=== PATIENT | female | born 1995 | race Caucasian/White ===

== ENCOUNTER 2020-06-21 12:20 | Emergency (ER) | payer OTHER, SELFPAY ==
--- NOTE | 2020-06-23 16:41 | ED.FEMALEGU ---
HPI - Female Genitourinary General Stated complaint: uti Time Seen by Provider: 06/21/20 18:00 Source: patient Mode of arrival: ambulatory Limitations: no limitations History of Present Illness HPI Narrative: Vickie Mehta is a 24 yo female with no PMH who comes to express care with back pain and , feels like her bladder spasming at the end of urination. Was given 3 days of Macrobid earlier in the week and initially felt better but all the symptoms have returned her last UTI was 1 year ago Related Data Home Medications Medication Instructions Recorded Confirmed cetirizine 10 mg tablet 10 mg PO DAILY 11/15/19 Allergies Allergy/AdvReac Type Severity Reaction Status Date / Time No Known Allergies Allergy Verified 05/27/20 09:38 Review of Systems Review of Systems: Narrative: CONSTITUTIONAL: Denies fever, chills, sweats. EYES: Denies visual changes, redness, discharge. ENT: Denies rhinorrhea, congestion, sore throat, otalgia. CARDIOVASCULAR: Denies chest pain, palpitations, edema. RESPIRATORY: Denies dyspnea, wheezing, cough GASTROINTESTINAL: Denies abdominal pain, nausea, vomiting, diarrhea. GENITOURINARY: Has dysuria, has hematuria, no abnormal discharge SKIN: Denies rash or itching. NEUROLOGIC: Denies numbness, or focal weakness. PSYCHIATRIC: Denies anxiety or depression. PMFSH Past Medical History Medical History Anxiety and depression OCD (obsessive compulsive disorder) Surgical History Surgical History Hx of total cystectomy 2014 right breast S/P ACL surgery right 2017 Family History Family History Grandparent Ovarian cancer Social History Social History Smoking status: Never smoker Alcohol intake: current Gender identity (if verbalized by the patient): Female Exam Narrative: Exam Narrative: GENERAL: This is a well-nourished, well-developed patient, in mild distress. HEAD: normocephalic, atraumatic. EYES: Sclera clear/white. Vision is grossly intact. EARS: External ears normal, . Hearing grossly intact. NOSE: External nose normal without nasal discharge, THROAT: Mucous membranes moist, NECK: Neck supple, CARDIOVASCULAR: Regular rate and rhythm without murmurs, gallops, or rubs. RESPIRATORY: Clear to auscultation. Breath sounds equal bilaterally. No wheezes, rales, or rhonchi. GASTROINTESTINAL: Abdomen soft, tender, mild right-sided lower back tenderness, tenderness SKIN: warm, intact with no suspicious lesions or rash, good texture and turgor. NEURO: awake, alert, and oriented to person, place and time. There were no obvious focal neurologic abnormalities. Steady gait EXTREMITIES: Normal range of motion. BACK: Nontender without deformity Course Course Emergency Course: Came to express care after failure of 3-day treatment of Macrobid for UTI Urine Dipstick showed 2+ protein 2+ leukocytes-sent for culture Continues to have symptoms of UTI change antibiotic to Keflex full course and Pyridium given Diflucan to take at the end of the antibiotics for prevention of fungal infection MDM - Female Genitourinary Differential Diagnosis Differential diagnosis: Likely urinary tract infection, bacterial vaginosis, cystitis and other Critical Care Time Critical Care Time Critical Care Time: No Discharge Plan Discharge Clinical Impression: UTI (urinary tract infection) Qualifiers: Urinary tract infection type: acute cystitis Hematuria presence: with hematuria Qualified Code(s): N30.01 - Acute cystitis with hematuria Patient Disposition: Home, Self-Care Condition: Stable Instructions: Dysuria (ED) Additional Instructions: Given Keflex, Pyridium, Diflucan Prescriptions: No Action cetirizine [Zyrtec] 10 mg tablet 10 mg PO DAILY RF: 0 sertraline 50
== END 2020-06-21 17:52 | disposition home or self-care (01) ==
PROVIDERS: Emergency Provider Nurse Practitioner
DX: N30.01 Acute cystitis with hematuria (principal)
CPT/HCPCS: 99213; G0463

== ENCOUNTER 2020-12-30 09:47 | Day surgery (SDC) | payer OTHER, SELFPAY ==
[2020-12-30] VITALS (12 sets, daily range): BP systolic 100–123; BP diastolic 46–78; PULSE 56–108; RESP 9–20; TEMP 36.4–37.4; O2SAT 95–100
--- NOTE | ~2020-12-30 | CT_ITS ---
EXAMINATION: CT abdomen pelvis w con INDICATION: Right lower quadrant TECHNIQUE: Computed tomographic images of the abdomen and pelvis were obtained after the administrati on of 100 cc of Omnipaque 350 intravenous contrast. The dose-length product (DLP) was 281.55 mGy-cm. Automated exposure control and iterative reconstruction technique were employed. COMPARISON: None available FINDINGS: The lung bases are clear. The heart size is normal. The liver, spleen, pancreas, gallbladde r, and adrenal glands are normal. The left kidney is unremarkable. 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 No pathologically enlarged abdominal or pelvic lymph nodes are identified. The dilated a ppendix measures 9 mm fat. No abscess or evidence of perforation identified. An IUD is present in exp ected location. There is a small volume of ascites in the pelvis. The visualized osseous structures a re unremarkable. IMPRESSION: 1. Acute appendicitis. These findings were discussed with Dr. Luís Freeman MD in the Emergency Department at 1206 hours on 12/30/2020. Reviewed, dictated and finalized at location B.
[2020-12-30 10:53] LABS: Basophils Percent Auto 0.4 % (0.2-1.2); Eosinophils Absolute Auto 0.1 K/mm3 (0-0.3); Eosinophils Percent Auto 1.1 % (0-4.4); Hematocrit 38.7 % (37.0-47.0); Hemoglobin 12.8 g/dL (12.0-15.0); Immature Granulocyte Absolute 0.04 K/mm3 (0.00-0.031); Immature Granulocyte Percent A 0.4 % (0-0.5); Lymphocytes Absolute Auto 1.28 K/mm3 (0.9-3.2); Lymphocytes Percent Auto 11.2 % (18.3-44.2); Mean Corpuscular HGB Conc 33.1 g/dl (32-36); Mean Corpuscular Hemoglobin 30.5 pg (26-34); Mean Corpuscular Volume 92.4 fl (80-100); Mean Platelet Volume 10.4 fl (7.4-10.4); Monocytes Absolute Auto 0.5 K/mm3 (0.1-0.6); Monocytes Percent Auto 4.7 % (2.6-8.5); Neutrophils Absolute Auto 9.4 K/mm3 (1.3-6.7); Neutrophils Percent Auto 82.2 % (45.5-73.1); Platelet Count Result 251 k/mm3 (150-375); Red Blood Count 4.19 M/mm3 (4.2-5.4); White Blood Count 11.4 K/mm3 (4.5-10.0)
[2020-12-30 11:00] LABS: Alanine Aminotransferase 14 U/L (4-35); Albumin Level 4.8 g/dL (3.5-5.1); Alkaline Phosphatase 54 U/L (38-126); Anion Gap 8 mmol/L (8-16); Aspartate Amino Transferase 26 U/L (14-36); Bilirubin,Total 1.2 mg/dL (0.2-1.3); Blood Urea Nitrogen 9 mg/dL (7-17); Calcium 9.7 mg/dL (8.4-10.2); Carbon Dioxide 27 mmol/L (22-30); Chloride 104 mmol/L (98-107); Estimated CRCL calculation 75 ml/min; Estimated Glomerular Filt Rate > 60; Glucose 128 mg/dL (65-105); Lipase 78 U/L (23-300); Potassium 3.7 mmol/L (3.4-5.0); Sodium 139 mmol/L (137-145)
[2020-12-30 11:02] LABS: Add Urine Microscopic? YES; Appearance Urine Clear (Clear); Bacteria Urine Trace /hpf; Bilirubin Urine Negative (Negative); Blood Urine 2+ (Negative); Color Urine Colorless (Yellow); Glucose Urine UA Negative (Negative); Ketones Urine Negative (Negative); Leukocyte Esterase Ur Negative LEU/UL (Negative); Nitrate Urine Negative (Negative); Protein Urine Negative (Negative); RBC Urine 0-2 /hpf (0-2); Squamous Epithelial Cell Urine Few /hpf (Few); Urobilinogen Urine Negative mg/dL (<2.0); WBC Urine 0-3 /hpf
[2020-12-30 11:03] LABS: Specific Grav Ur 1.004 (1.001-1.035)
[2020-12-30] MEDS: MORPHINE SULFATE (*CRX) 4 MG/ML INJ IV PUSH (11:39)
[2020-12-30] MEDS: SODIUM CHLORIDE 0.9% IV 1,000 ML 999 ML IV CONT (12:42)
--- NOTE | 2020-12-30 12:51 | ED.GENADULT ---
HPI - General Adult General Chief complaint: Abdominal Pain Stated complaint: abd pain, nausea Time Seen by Provider: 12/30/20 11:13 History of Present Illness HPI narrative: Patient is a 25-year-old female who presents to the ER with abdominal pain. Began in her epigastrium and burning in nature. Also developed pain in her right lower quadrant. Worsening over the last day since taking a diet pill. Denies fevers or chills or sweats. Has not had similar pain in the past. Pain is also worse with bending and moving. Related Data Home Medications Medication Instructions Recorded Confirmed cetirizine 10 mg tablet 10 mg PO DAILY 11/15/19 Allergies Allergy/AdvReac Type Severity Reaction Status Date / Time No Known Allergies Allergy Verified 05/27/20 09:38 Review of Systems Review of Systems: All systems reviewed & are unremarkable except as noted in HPI and below Constitutional: Constitutional: Denies chills, Denies fever(s) and Denies weakness ENT: Denies nasal congestion and Denies sore throat Gastrointestinal: Gastrointestinal: Reports abdominal pain, Denies diarrhea, Reports nausea and Denies vomiting Genitourinary: Genitourinary: Denies nocturia, Denies dysuria and Denies flank pain PMFSH Past Medical History Medical History Anxiety and depression OCD (obsessive compulsive disorder) Surgical History Surgical History Hx of total cystectomy 2014 right breast S/P ACL surgery right 2017 Family History Family History Grandparent Ovarian cancer Social History Social History Smoking status: Never smoker Alcohol intake: current Gender identity (if verbalized by the patient): Female Exam Narrative: Exam Narrative: GENERAL: Well-appearing, well-nourished, and in no acute distress. HEAD: Normocephalic, atraumatic. ENT: Mucous membranes moist. CHEST: Clear to auscultation. No respiratory distress. HEART: Regular rate and rhythm. Normal peripheral pulses. ABDOMEN: Soft, TTP RLQ with guarding, nondistended. EXTREMITIES: Normal range of motion. No edema. SKIN: Warm, dry, no rash. NEURO: Alert and oriented x3. PSYCH: Normal mood and affect. Course Course Emergency Course: Patient informed results. Surgery at bedside. Patient receiving Zosyn and IV fluid. She is n.p.o. Vital Signs Vital signs: Vital Signs Temperature 98.0 F 12/30/20 10:18 Pulse Rate 90 12/30/20 10:18 Respiratory Rate 18 12/30/20 10:18 Blood Pressure 123/74 12/30/20 10:18 Pulse Oximetry 100 12/30/20 10:18 Temperature 98.0 F 12/30/20 11:21 Pulse Rate 63 12/30/20 12:42 Respiratory Rate 20 12/30/20 12:42 Blood Pressure 104/57 L 12/30/20 12:42 Pulse Oximetry 99 12/30/20 12:42 Medical Decision Making Vital Signs Vital Signs: Vital Signs Temperature 98.0 F 12/30/20 10:18 Pulse Rate 90 12/30/20 10:18 Respiratory Rate 18 12/30/20 10:18 Blood Pressure 123/74 12/30/20 10:18 Pulse Oximetry 100 12/30/20 10:18 Temperature 98.0 F 12/30/20 11:21 Pulse Rate 63 12/30/20 12:42 Respiratory Rate 20 12/30/20 12:42 Blood Pressure 104/57 L 12/30/20 12:42 Pulse Oximetry 99 12/30/20 12:42 Lab Data Result diagrams: 12/30/20 10:37 12/30/20 10:37 Labs: Lab Results 12/30/20 12/30/20 12/30/20 Range/Units 10:37 10:37 10:37 WBC 11.4 H (4.5-10.0) K/mm3 RBC 4.19 L (4.2-5.4) M/mm3 Hgb 12.8 (12.0-15.0) g/dL Hct 38.7 (37.0-47.0) % MCV 92.4 (80-100) fl MCH 30.5 (26-34) pg MCHC 33.1 (32-36) g/dl RDW 12.0 (11.5-14.5) % Plt Count 251 (150-375) k/mm3 MPV 10.4 (7.4-10.4) fl Immature Gran % (Auto) 0.4 (0-0.5) % Neut % (Auto) 82.2 H (45.5-73.1) % Lymph % (Auto) 1
--- NOTE | 2020-12-30 13:47 | PM.IMHP ---
H&P: HPI History of Present Illness Date/Time: 12/30/20 13:47 Pt is a 25 y/o F presenting to ED c/o RLQ abd pain over last few days. Pt reports pain started on Monday but more diffuse and less severe. Pt reports progressive localization to RLQ and now pain is much more severe, sharp. Pt reports some N/V, decreased appetite. Pt denies previous episodes, denies f/c. Chief Complaint: acute appendicitis Review of Systems Constitutional: Constitutional: Reports anorexia, Denies body ache(s), Denies chills, Reports fatigue, Denies fever(s), Denies headache(s), Denies malaise, Denies night sweats, Reports poor appetite, Denies weakness, Denies weight gain and Denies weight loss Eyes: Eyes: Reports no additional eye complaints ENT: Reports system reviewed and no additional complaints, except as documented Cardiovascular: Cardiovascular: Reports no additional cardiovascular complaints Respiratory: Respiratory: Reports no additional respiratory complaints Gastrointestinal: Gastrointestinal: Reports as per HPI, Reports abdominal pain, Denies belching, Denies bloating, Denies hematochezia, Denies change in bowel habits, Denies change in stool character, Denies constipation, Denies GI cramping, Denies early satiety, Denies heartburn, Denies diarrhea, Denies loose stools, Reports nausea and Reports vomiting Genitourinary: Genitourinary: Reports no additional female genitourinary complaints Musculoskeletal: Musculoskeletal: Reports no additional musculoskeletal complaints Integumentary/Breasts: Skin/Breast: Reports system reviewed and no additional complaints, except as docu Neurologic: Reports system reviewed and no additional complaints, except as documented Psychiatric: Psychiatric: Reports no additional psychiatric complaints Endocrine: Endocrine: Reports no additional endocrine complaints Hematologic/Lymphatic: Hematologic/Lymphatic: Reports no additional hematologic/lymphatic complaints Allergic/Immunologic: Allergic/Immunologic: Reports no additional allergic/immunologic complaints PMFSH Past Medical History Medical History Anxiety and depression OCD (obsessive compulsive disorder) Surgical History Surgical History Hx of total cystectomy 2014 right breast S/P ACL surgery right 2017 Family History Family History Grandparent Ovarian cancer Social History Social History Smoking status: Never smoker Alcohol intake: current Gender identity (if verbalized by the patient): Female Meds Home Medications and Allergies Home Medications Medication Instructions Recorded Confirmed Type cetirizine 10 mg tablet 10 mg PO DAILY 11/15/19 History sertraline 50 mg tablet 50 mg PO DAILY #90 tablet 01/28/20 Rx Allergies Allergy/AdvReac Type Severity Reaction Status Date / Time No Known Allergies Allergy Verified 05/27/20 09:38 Vital Signs Vital Signs - 24 hr 12/30/20 10:18 12/30/20 11:21 12/30/20 12:42 Temperature 36.7 C 36.7 C Pulse Rate 90 78 63 Respiratory Rate 18 18 20 Blood Pressure 123/74 123/74 104/57 L Pulse Oximetry 100 100 99 Exam Const: General: cooperative, healthy appearing, comfortable and acute distress mild Nutritional Appearance: average body habitus Orientation/consciousness: patient oriented x3 Limitations: no limitations HENMT: Head: normal to inspection, normocephalic and atraumatic Ears: hearing grossly normal bilaterally General nose exam: Normal external nose present Face and sinus: normal facial exam Mouth: Yes Normal oral and palatal mucosa present and Yes moist mucous membranes Eyes: General: appearance normal, both eyes and all related structures Pupils: Equal, round and reactive pupils present EOM: EOMs intact bilaterally Neck: Neck: normal vi
--- NOTE | 2020-12-30 13:52 | WPDHPUPDATE1 ---
History and Physical Update Update Date/Time: 12/30/20 13:52 History and Physical has been reviewed, including an updated exam of the patient. There are NO changes in the patient's condition. Risks, benefits, and alternatives have been discussed and questions answered. Patient agrees to proceed with procedure.
--- NOTE | 2020-12-30 14:41 | WPDANESEPPF ---
Anes - Initial Pre Proc Eval Procedure: Operation Date: 12/30/20 16:00 Proposed Procedures p Laparoscopic Appendectomy - Chrystal Buck MD Date/Time: 12/30/20 14:41 Surgeon: Chrystal Buck MD Pre Op Diagnosis: abd pain, nausea Patient Data Age: 25 Gender: F Height: 1.57 m Weight: 65.4 kg Last Vital Signs Temp 37.4 C 12/30/20 14:29 Pulse 56 L 12/30/20 14:29 Resp 16 12/30/20 14:29 BP 106/61 12/30/20 14:29 Pulse Ox 98 12/30/20 14:29 Allergies Allergy/AdvReac Type Severity Reaction Status Date / Time No Known Allergies Allergy Verified 12/30/20 14:41 Home Medications Medication Instructions Recorded Confirmed Type cetirizine 10 mg tablet 10 mg PO DAILY 11/15/19 History [id number] K 1 tab-cap PO DAILY 12/30/20 12/30/20 History [Multi For Her] Laboratory Tests 12/30/20 12/30/20 12/30/20 10:37 10:37 10:37 WBC 11.4 K/mm3 H K/mm3 (4.5-10.0) RBC 4.19 M/mm3 L M/mm3 (4.2-5.4) Hgb 12.8 g/dL g/dL (12.0-15.0) Hct 38.7 % % (37.0-47.0) MCV 92.4 fl fl (80-100) MCH 30.5 pg pg (26-34) MCHC 33.1 g/dl g/dl (32-36) RDW 12.0 % % (11.5-14.5) Plt Count 251 k/mm3 k/mm3 (150-375) MPV 10.4 fl fl (7.4-10.4) Immature Gran % (Auto) 0.4 % % (0-0.5) Neut % (Auto) 82.2 % H % (45.5-73.1) Lymph % (Auto) 11.2 % L % (18.3-44.2) [place] % (Auto) 4.7 % % (2.6-8.5) Eos % (Auto) 1.1 % % (0-4.4) Baso % (Auto) 0.4 % % (0.2-1.2) Lymph # (Auto) 1.28 K/mm3 K/mm3 (0.9-3.2) [place] # (Auto) 0.5 K/mm3 K/mm3 (0.1-0.6) Eos # (Auto) 0.1 K/mm3 K/mm3 (0-0.3) Baso # (Auto) 0.0 K/mm3 K/mm3 (0.0-0.1) Abs Immat Gran (auto) 0.04 K/mm3 H K/mm3 (0.00-0.031) Absolute Neuts (auto) 9.4 K/mm3 H K/mm3 (1.3-6.7) Absolute Nucleated RBC 0.0 K/mm3 K/mm3 (0.0-0.012) Nucleated RBC % 0.0 % % (0.0-0.2) Sodium 139 mmol/L mmol/L (137-145) Potassium 3.7 mmol/L mmol/L (3.4-5.0) Chloride 104 mmol/L mmol/L (98-107) Carbon Dioxide 27 mmol/L mmol/L (22-30) Anion Gap 8 mmol/L mmol/L (8-16) BUN 9 mg/dL mg/dL (7-17) Creatinine 0.90 mg/dL mg/dL (0.7-1.0) Estim Creat Clear Calc 75 ml/min ml/min Estimated GFR > 60 (59 - ) Glucose 128 mg/dL H mg/dL (65-105) Calcium 9.7 mg/dL mg/dL (8.4-10.2) Total Bilirubin 1.2 mg/dL mg/dL (0.2-1.3) AST 26 U/L U/L (14-36) ALT 14 U/L U/L (4-35) Alkaline Phosphatase 54 U/L U/L (38-126) Total Protein 8.0 g/dL g/dL (6.3-8.2) Albumin 4.8 g/dL g/dL (3.5-5.1) Lipase 78 U/L U/L (23-300) Urine Color Colorless (Yellow) Urine Appearance Clear (Clear) Urine pH 7.0 (5.0-9.0) Ur Specific Clarissa 1.004 (1.001-1.035) Urine Protein Negative mg/dL mg/dL (Negative) Urine Glucose (UA) Negative mg/dL mg/dL (Negative) Urine Ketones Negative mg/dL mg/dL (Negative) Ur Blood (Man) 2+ H (Negative) Urine Nitrate Negative (Negative) Urine Bilirubin Negative (Negative) Urine Urobilinogen Negative mg/dL mg/dL (<2.0) Leukocyte Esterase Rfl Negative WILFRED/UL WILFRED/UL (Negative) Urine RBC 0-2 /hpf /hpf (0-2) Urine WBC 0-3 /hpf /hpf Ur Squamous Epith Cells Few /hpf /hpf (Few) Urine Bacteria Trace /hpf /hpf Patient hx anesthesia problems: none Family hx anesthesia problems: none PMFSH Past Medical History Medical History Anxiety and depression OCD (obsessive compulsive disorder) Surgical History Araceli
[2020-12-30] MEDS: BUPIVACAINE/EPINEPHRINE 0.5% 10 ML VIAL 30 ML INFILTRATE (15:49)
--- NOTE | 2020-12-30 15:50 | P.OP_ITS ---
Procedure Note - Detailed Date of Procedure 12/30/20 Pre-op Diagnosis acute appendicitis Post-op Diagnosis same Procedure Performed laparoscopic appendectomy Surgeon Chrystal Buck MD Anesthesia general Findings acute appendicitis no evidence of perforation Description of Procedure The patient was taken to the operating room and placed in the supine position. After adequate induction of general anesthesia, the patient was prepped and draped in the normal sterile fashion. A time-out was then done to verify the patient's identity, as well as the procedure being performed. I began by making a 5 mm incision in the infraumbilical region, through this a Veress needle was placed in the peritoneal cavity. CO2 gas was then insufflated and after adequate pneumoperitoneum was achieved the Veress needle was removed. Then placed a 5 mm Optiview trocar under direct visualization into the peritoneal cavity. I then insufflated through this trocar site and the endoscope was placed into the trocar. Under direct visualization, placed 2 further 5 mm suprapubic port as well as an additional 12 mm port in the left lower abdomen. At this point identified the cecum, I retracted the cecum both medially and superiorly allowing me to expose the appendix. The appendix was noted to be dilated and inflamed especially towards the tip. The appendix was noted to be very adherent to the right lateral sidewall as well as the ileum. I was able to bluntly dissect the appendix from these adhesions. I then was able to locate the base of the appendix with the cecum. I created a window with the [place] dissector between the appendix itself and the mesoappendix. I then transected the mesoappendix with a white vascular staple load. The Endo-JUAN ANTONIO was then reloaded with a blue staple load and I transected the base of the appendix. Once the specimen was completely detached, an endo-pouch was placed into the 12 mm port site and the specimen was removed through the endo-pouch. The appendiceal specimen will be sent to pathology for further review. I then co piously irrigated the right lower quadrant. Hemostasis was noted at both staple lines no other pathology was seen in this area. I then moved the camera to the suprapubic port to check our its port of entry. No iatrogenic injury or other pathology was noted in the upper abdomen. I then closed the 12 mm port site with a Etienne code and 0 Vicryl suture under direct visualization. At this point, the abdomen was desufflated and all ports were removed. All port sites were closed with 4 Monocryl subcuticular suture. Dermabond was placed on all wounds. The patient tolerated the procedure well and was extubated in the operating room postop. He will be sent to the recovery room in stable condition. Estimated Blood Loss 10 Drains No Packing No Pathology yes Complications No immediate complications Condition stable Disposition PACU
[2020-12-30] MEDS: LACTATED RINGERS 1,000 ML 30 ML IV CONT ×2 (16:10)
[2020-12-30] MEDS: fentaNYL CITRATE INJ (*CRX) 100 MCG/2 ML VIAL 25 MCG IV PUSH ×8 (16:22→16:49)
== END 2020-12-30 17:47 | disposition home or self-care (01) ==
LOC: ANHED 13:12 → ANHSURGERY 13:49
PROVIDERS: Emergency Provider Emergency Medicine; PCP Internal Medicine; Visit Provider Surgery
PROC: 0DTJ4ZZ Resection of Appendix, Percutaneous Endoscopic Approach (ICD-10-PCS; CPT 44970; principal; 2020-12-30 16:00)
DX: K35.30 Acute appendicitis with localized peritonitis, without perforation or gangrene (principal)
CPT/HCPCS: 44970; 36415; 74177; 80053; 81001; 81025; 83690; 85025; 88304; 96365; 96375; 99285; J2250; J2270; J2543; J3010; J7030; J7120; Q9967

== ENCOUNTER → 2023-07-04 12:46 | Outpatient (CLI) | payer OTHER, SELFPAY ==
--- NOTE | ~2023-07-04 | US_ITS ---
Pelvic ultrasound. Clinical History: Pelvic pain, bloating Technique: Realtime transabdominal scanning of the pelvis was performed. Color flow Doppler and Doppl er spectral analysis were performed. Findings: The uterus is anteverted. The endometrial stripe has a thickness of [address] No focal mass is identified. The right ovary measures 5.1 x 2.9 x 5.3 cm. Right ovarian cyst measures 4.1 x 1.9 x 3.3 cm. The left ovary measures 3.7 x 2.2 x 2.2 cm. No significant left ovarian or adnexal mass is seen. There is no evidence of free fluid in the cul de sac. Impression: IUD in satisfactory position. 4.1 cm simple right ovarian cyst. Reviewed, dictated and finalized at [facility]. [employer] Impression: IUD in satisfactory position. 4.1 cm simple right ovarian cyst.
== END ==
PROVIDERS: PCP Nurse Practitioner; Visit Provider Nurse Practitioner
DX: R10.2 Pelvic and perineal pain (principal); Z97.5 Presence of (intrauterine) contraceptive device; N83.201 Unspecified ovarian cyst, right side
CPT/HCPCS: 76856

== ENCOUNTER → 2023-08-21 14:50 | Outpatient (CLI) | payer OTHER, SELFPAY ==
--- NOTE | ~2023-08-21 | US_ITS ---
Pelvic ultrasound. Clinical History: Right ovarian cyst COMPARISON: 07/04/2023 Technique: Realtime transabdominal scanning of the pelvis was performed. Color flow Doppler and Doppl er spectral analysis were performed. Findings: The uterus is anteverted. The endometrial stripe has a thickness of [address] No focal mass is identified. The right ovary measures 1.3 x 2.9 x 1.6 cm. No significant right ovarian or adnexal mass is seen. The left ovary measures 3.1 x 1.9 x 3.1 cm. No significant left ovarian or adnexal mass is seen. There is no evidence of free fluid in the cul de sac. Impression: Previously noted right ovarian cyst is resolved. IUD in place. Reviewed, dictated and finalized at [facility]. [employer] Impression: Previously noted right ovarian cyst is resolved. IUD in place.
== END ==
PROVIDERS: PCP Obstetrics & Gynecology Gynecology; Visit Provider Obstetrics & Gynecology Gynecology
DX: N83.201 Unspecified ovarian cyst, right side (principal); Z97.5 Presence of (intrauterine) contraceptive device
CPT/HCPCS: 76856

== ENCOUNTER 2023-12-01 21:56 | Emergency (ER) | payer OTHER, SELFPAY ==
[2023-12-01 22:05] VITALS: BP 128/87; PULSE 78; RESP 16; TEMP 36.9; O2SAT 100
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
[2023-12-01] MEDS: HYDROcodone/acetaminophen (*CRX) 5-325 MG TABLET 1 TAB PO (22:42)
[2023-12-01] MEDS: TETANUS,DIPHTHERIA,AC PERTUSSIS ADULT (0.5 ML) BOOSTRIX IM (22:43)
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
[2023-12-02] MEDS: ONDANSETRON HCL ODT 4 MG TABLET PO (00:31)
[2023-12-02] MEDS: BACITRACIN OINTMENT 15 GM TUBE 1 APPLIC (00:31)
--- NOTE | 2023-12-02 00:47 | PC.NURSE ---
wound cleansed ns and bacitracin placed on top. telfa no stick pad, then kerlex and a piece of tape to each area.
[2023-12-02 01:17] VITALS: PULSE 68; RESP 16; O2SAT 98
== END 2023-12-02 01:18 | disposition home or self-care (01) ==
PROVIDERS: Emergency Provider Physician Assistant; PCP Obstetrics & Gynecology Gynecology
DX: T23.232A Burn of second degree of multiple left fingers (nail), not including thumb, initial encounter (principal); T23.251A Burn of second degree of right palm, initial encounter; T22.211A Burn of second degree of right forearm, initial encounter; T31.0 Burns involving less than 10% of body surface; Z23 Encounter for immunization; X10.1XXA Contact with hot food, initial encounter
CPT/HCPCS: 16020; 90471; 90715; 99283; A9270

== ENCOUNTER 2024-03-25 13:19 | Outpatient (CLI) | payer OTHER, SELFPAY ==
--- NOTE | ~2024-03-25 | US_ITS ---
EXAMINATION: US transvaginal DATE: 03/25/2024 14:36 INDICATION: Pelvic pain TECHNIQUE: Multiple endovaginal sonographic images of the pelvis were obtained. COMPARISON: None. FINDINGS: The uterus measures 6.8 x 2.9 x 4.1 cm. The endometrial complex measures <2 mm in thickness. Linear T-shaped echogenic and shadowing IUD within the endometrial canal. The right ovary measures 2.6 x 2.0 x 2.0 cm. The left ovary measures 2.5 x 2.4 x 2.2 cm. A couple small the bilateral anechoic ovarian follicles, the largest on the left measuring 1.3 cm. Vascular flow with arterial waveforms identified at both ovaries on color Doppler. There is no free fluid in the pelvis. IMPRESSION: 1. IUD in expected position within the endometrial canal. Otherwise normal pelvic ultrasound. Reviewed, dictated and finalized at location A. IMPRESSION: 1. IUD in expected position within the endometrial canal. Otherwise normal pelv ic ultrasound.
== END 2024-03-25 13:20 | disposition home or self-care (01) ==
LOC: MICIMG 13:20
PROVIDERS: PCP Obstetrics & Gynecology Gynecology; Visit Provider Nurse Practitioner Women's Health
DX: N93.8 Other specified abnormal uterine and vaginal bleeding (principal); R10.2 Pelvic and perineal pain; R10.31 Right lower quadrant pain; Z97.5 Presence of (intrauterine) contraceptive device
CPT/HCPCS: 76830

== ENCOUNTER 2024-04-26 07:55 | Outpatient (CLI) | payer OTHER, SELFPAY ==
--- NOTE | ~2024-04-26 | MM_ITS ---
EXAMINATION: MM diagnostic kemar BI w flora HISTORY: Mastodynia TECHNIQUE: Additional 3-D tomosynthesis images of the breasts were performed and synthetic 2-D images were generated. CAD analysis was submitted and interpreted. COMPARISON: Ultrasound dated 04/26/2024 BREAST PARENCHYMAL COMPOSITION: Dense: The breasts are extremely dense, which lowers the sensitivity of mammography. FINDINGS: There are no suspicious masses, calcifications or architectural distortion in either breast to suggest malignancy. IMPRESSION: 1. No mammographic evidence for malignancy. Probable benign complicated cyst seen on ultrasound in th e left breast. 2. Recommend 6 month follow-up Limited left breast ultrasound BI-RADS category 3, probably benign findings. Reviewed, dictated and finalized at location B. IMPRESSION: 1. No mammographic evidence for malignancy. Probable benign complicated cyst se en on ultrasound in the left breast. 2. Recommend 6 month follow-up Limited left breast ultrasound BI-RADS category 3, probably benign findings.
--- NOTE | ~2024-04-26 | US_ITS ---
US breast BI complete INDICATION: Mastodynia TECHNIQUE: Dedicated bilateral complete breast ultrasound including all 4 quadrants in the subareolar locations COMPARISON: Right breast ultrasound dated 08/23/2013 FINDINGS: The right breast is/are composed of normal heterogeneous echotexture without focal solid or cystic mass. In the subareolar location of the left breast there is a complicated cyst located superficially measu ring 8 x 2 x 6 mm, likely benign. IMPRESSION: 1: Probable benign complicated cyst of the left breast in the subareolar location measuring 8 mm. BI-RADS CATEGORY 3-PROBABLY BENIGN FINDING RECOMMENDATION: 6 month follow-up Limited left breast ultrasound recommended. Reviewed, dictated and finalized at location B. IMPRESSION: 1: Probable benign complicated cyst of the left breast in the subareolar locati on measuring 8 mm. BI-RADS CATEGORY 3-PROBABLY BENIGN FINDING RECOMMENDATION: 6 month follow-up Limited left breast ultrasound recommended.
== END 2024-04-26 07:56 | disposition home or self-care (01) ==
LOC: MICIMG 07:56
PROVIDERS: PCP Nurse Practitioner Women's Health; Visit Provider Nurse Practitioner Women's Health
DX: N64.4 Mastodynia (principal)
CPT/HCPCS: 76641; 77062; 77066; G0279

== ENCOUNTER 2024-08-30 11:27 | Outpatient (CLI) | payer OTHER, SELFPAY | END 2024-08-30 11:28 | disposition home or self-care (01) | LOC: MICIMG 11:28 | PROVIDERS: PCP Obstetrics & Gynecology Gynecology; Visit Provider Obstetrics & Gynecology Gynecology | DX: E22.1 Hyperprolactinemia (principal) | CPT/HCPCS: 70553; A9579 ==